=== PATIENT | male | born 1955 | race Asian ===

== ENCOUNTER 2016-10-20 14:11 | Observation (INO) | payer SELFPAY ==
--- NOTE | 2016-10-20 15:25 | PDOC ---
History of Present Illness <Floyd Houser - Last Filed: 10/20/16 17:19> - General History Source: Patient Exam Limitations: No Limitations - History of Present Illness Initial Comments: 10/20/16 15:32 The patient is a 61 year old male with a significant PMH of diabetes who presents to the emergency department with blurred vision beginning yesterday at about 2:00PM. 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 He describes the blurriness as intermittent and without pain. The patients called Dr. Odonnell, who is covering for Dr. Shaffer, who referred her to the ED after noting a high blood pressure. The patient denies chest pain, shortness of breath, headache and dizziness. Denies fever, chills, nausea, vomit, diarrhea and constipation. Denies dysuria, frequency, urgency and hematuria. Allergies: Penicillin Social history: No reported cigarette, drug, or alcohol use PCP: Dr. Shaffer <Bobby Smith - Last Filed: 10/20/16 17:29> - General Chief Complaint: CVA/TIA Stated Complaint: SENT BY PCP FOR HTN Time Seen by Provider: 10/20/16 14:58 NIH Stroke Scale - Last Known Well Date/Time & Onset Date Last Known Well: 10/19/16 Time Last Known Well: 14:00 - Initial Evaluation Level of consciousness: Alert Ask patient the month and their age: Answers both correctly Ask patient to open & close eyes; make fist and let go: Obeys both correctly Best gaze (horizontal eye movement): Normal Visual field testing: No visual field loss Facial paresis (Show teeth/raise eyebrows/close eyes tight): Normal symmetrical movement Motor Function: Left Arm: Normal Motor Function: Right Arm: Normal (extends arm 90 (or 45) degrees for 10 seconds without drift Motor Function: Left Leg: Normal (extends leg 30 degrees for 5 seconds without drift) Motor Function: Right Leg: Normal (extends leg 30 degrees for 5 seconds without drift) Limb Ataxia: No ataxia Sensory(Use pinprick test arms,legs,trunk,face/side to side): Normal Best language (Describe picture, name items, read sentences): No Aphasia Dysarthria (read several words): Normal articulation Extinction and Inattention: No abnormality - Total Score NIH Stroke Scale Score: 0 <Floyd Houser - Last Filed: 10/20/16 17:19> Past History - Past Medical History Diabetes: Yes - Psycho/Social/Smoking Cessation Hx Anxiety: No Suicidal Ideation: No Smoking Status: No Smoking History: Never smoked Number of Cigarettes Smoked Daily: 0 Information on smoking cessation initiated: No Hx Alcohol Use: No <Floyd Houser - Last Filed: 10/20/16 17:19> <Bobby Smith - Last Filed: 10/20/16 17:29> - Past Medical History Allergies/Adverse Reactions: Allergies Allergy/AdvReac Type Severity Reaction Status Date / Time Penicillins Allergy Verified 10/20/16 14:20 Home Medications: Ambulatory Orders Unobtainable [Unobtainable] 10/20/16 Review of Systems - Review of Systems Comments:: 10/20/16 15:33 GENERAL/CONSTITUTIONAL: No fever or chills. No weakness. HEAD, EYES, EARS, NOSE AND THROAT: (+) Blurred vision in right eye. No ear pain or discharge. No sore throat. CARDIOVASCULAR: No chest pain or shortness of breath. RESPIRATORY: No cough, wheezing, or hemoptysis. GASTROINTESTINAL: No nausea, vomiting, diarrhea or constipation. GENITOURINARY: No dysuria, frequency, or change in urination. MUSCULOSKELETAL: No joint or muscle swelling or pain. No neck or back pain. SKIN: No rash NEUROLOGIC: No headache, vertigo, loss of consciousness, or change in strength/ sensation. ENDOCRINE: No increased thirst. No abnormal weight change. HEMATOLOGIC/LYMPHATIC: No anemia, easy bleeding, or history of blood clots. ALLERGIC/IMMUNOLOGIC: No hives or skin allergy. <Bobby Smith - Last Filed: 10/20/16 17:29> *Physical Exam - Vital Signs Last Vital Signs Temp Pulse Resp BP Pulse Ox 98.2 F 75 18 158/95 100 10/20/16 14:13 10/20/16 14:13 10/20/16 14:13 10/20/16 14:13 10/20/16 14:13 <Floyd Houser - Last Filed: 10/20/16 17:19> - Vital Signs Last Vital Signs Temp Pulse Resp BP Pulse Ox 98.2 F 75 18 158/95 100 10/20/16 14:13 10/20/16 14:13 10/20/16 14:13 10/20/16 14:13 10/20/16 14:13 - Physical Exam Comments: 10/20/16 15:33 GENERAL: Awake, alert, and fully oriented, in no acute distress HEAD: No signs of trauma EYES: PERRLA, EOMI, sclera anicteric, conjunctiva clear ENT: Auricles normal inspection, hearing grossly normal, nares patent, oropharynx clear without exudates. Moist mucosa NECK: Normal ROM, supple, no lymphadenopathy, JVD, or masses LUNGS: Breath sounds equal, clear to auscultation bilaterally. No wheezes, and no crackles HEART: Regular rate and rhythm, normal S1 and S2, no murmurs, rubs or gallops ABDOMEN: Soft, nontender, normoactive bowel sounds. No guarding, no rebound. No masses EXTREMITIES: Normal range of motion, no edema. No clubbing or cyanosis. No cords, erythema, or tenderness NEUROLOGICAL: Cranial nerves II through XII grossly intact. Normal speech, normal gait. Symmetrical, no motor or sensory loss. No dysmetria. No disconjugate gaze. No amblyopia. No cerebellar signs. No aphasia. No dysarthria. Grossly without any abnormalities. SKIN: Warm, Dry, normal turgor, no rashes or lesions noted. <Bobby Smith - Last Filed: 10/20/16 17:29> Heart Score/ECG Review #1 10/20/16 16:13 Vent. rate 72 bpm WA interval 160 ms QRS duration 80 ms QT/QTc 372/407 ms P-R-T axes 47 53 35 Normal sinus rhythm Normal ECG. <Bobby Smith - Last Filed: 10/20/16 17:29> ED Treatment Course - LABORATORY CBC & Chemistry Diagram: 10/20/16 14:45 10/20/16 14:45 - RADIOLOGY Radiology Studies Ordered: Category Date Time Status HEAD CT (STROKE) [CT] Stat CT Scan 10/20/16 15:21 Ordered CHEST X-RAY PORTABLE* [RAD] Stat Radiology 10/20/16 15:23 Ordered <Floyd Houser - Last Filed: 10/20/16 17:19> - LABORATORY CBC & Chemistry Diagram: 10/20/16 14:45 10/20/16 14:45 <Bobby Smith - Last Filed: 10/20/16 17:29> Medical Decision Making - Medical Decision Making 10/20/16 17:17 Spoke with MICHAEL Boswell, Observation Telemetry MRI tomorrow Consult Neuro, Tamera <Floyd Houser - Last Filed: 10/20/16 17:19> - Medical Decision Making 10/20/16 17:[address] Philip, Neurology regarding this case. <Bobby Smith - Last Filed: 10/20/16 17:29> *DC/Admit/Observation/Transfer - Discharge Dispostion Admit: Yes - Attestations Physician Attestion: 10/20/16 15:24 I, Dr. Floyd Houser, attest that this document has been prepared under my direction and personally reviewed by me in its entirety. I further attest, that it accurately reflects all work, treatment, procedures and medical decision -making performed by me. <Floyd Houser - Last Filed: 10/20/16 17:19> - Attestations Scribe Attestion: 10/20/16 15:33 Documentation prepared by Bobby Smith, acting as medical oncologist for Floyd Houser MD. <Bobby Smith - Last Filed: 10/20/16 17:29> Diagnosis at time of Disposition: Acute visual loss Qualifiers: Laterality: right Qualified Code(s): H53.131 - Sudden visual loss, right eye TIA (transient ischemic attack) Qualifiers: Transient cerebral ischemia type: unspecified Qualified Code(s): G45.9 - Transient cerebral ischemic attack, unspecified Hypertension Qualifiers: Hypertension type: essential hypertension Qualified Code(s): I10 - Essential ( primary) hypertension - Discharge Dispostion Condition at time of disposition: Improved - Referrals Referrals: Mallory Shaffer MD [Primary Care Provider] -
[2016-10-20 16:09] LABS: BASOPHIL 0.3 % (0-2.0); EOSINOPHIL 0.8 % (0-4.5); MCHC 33.6 g/dl (32.0-35.9); MEAN CELL VOLUME 86.2 fl (80-96); MEAN PLT VOLUME 8.2 fl (7.5-11.1); NEUTROPHILS 59.6 % (42.8-82.8); PLATELET COUNT 284 K/MM3 (134-434); RDW 12.7 % (11.9-15.9); WHITE BLOOD COUNT 9.5 K/mm3 (4.0-10.0)
[2016-10-20 16:09] LABS: URINE APPEARANCE CLEAR; URINE BILIRUBIN NEGATIVE (NEGATIVE); URINE BLOOD NEGATIVE (NEGATIVE); URINE COLOR LTYELLOW; URINE GLUCOSE (UA) 3+ (NEGATIVE); URINE KETONE 1+ (NEGATIVE); URINE LEUK ESTERASE NEGATIVE (NEGATIVE); URINE NITRITE NEGATIVE (NEGATIVE); URINE PROTEIN NEGATIVE (NEGATIVE); URINE UROBILINOGEN NEGATIVE mg/dL (0.2-1.0)
[2016-10-20 16:23] LABS: INR 1.06 (0.82-1.09); PROTHROMBIN TIME (PATIENT) 11.7 SEC (9.98-11.88)
[2016-10-20] MEDS: SODIUM CHLORIDE 1,000 ML IV SCH (16:25)
[2016-10-20 16:33] LABS: ALBUMIN 4.1 g/dl (3.4-5.0); ANION GAP 9 (8-16); CALCIUM 9.2 mg/dL (8.5-10.1); CHOLESTEROL 210 mg/dL (50-200); CO2 26 mmol/L (21-32); CREATININE 0.8 mg/dL (0.7-1.3); GLUCOSE,RANDOM 102 mg/dL (74-106); LDL CHOLESTEROL (ONLY SJRH) 142 mg/dL (5-100); SGOT/AST 15 U/L (15-37); SGPT/ALT 23 U/L (12-78); TOT PROT 7.7 g/dl (6.4-8.2)
[2016-10-20 16:34] LABS: ALK PHOS 55 U/L (45-117); CPK 61 IU/L (39-308); TROPONIN I < 0.02 ng/ml (0.00-0.05)
--- NOTE | 2016-10-20 18:49 | EKG ---
Test Reason : Blood Pressure : / mmHG Vent. Rate : 072 BPM Atrial Rate : 072 BPM P-R Int : 160 ms QRS Dur : 080 ms QT Int : 372 ms P-R-T Axes : 047 053 035 degrees QTc Int : 407 ms NORMAL SINUS RHYTHM NORMAL ECG NO PREVIOUS ECGS AVAILABLE Confirmed by JANNIE MOE MD ([id number]) on 10/20/2016 6:49:04 PM Referred By: Confirmed By:JANNIE MOE MD
[2016-10-20] MEDS ORDERED: METOPROLOL TARTRATE 25 MG TABLET (FP) ONE (18:52)
[2016-10-20] MEDS ORDERED: METOPROLOL TARTRATE 25 MG TABLET (FP) PO ONE (18:56)
--- NOTE | 2016-10-20 19:59 | HP ---
Admitting History and Physical - Primary Care Physician PCP: Mallory Shaffer - Admission Chief Complaint: Blurring of vision Rt eye History of Present Illness: 61 yrs old man h/o T2DM, non smoker, no H/O HTN, Dyslipidemia, works as a professional driver , is referred by PMD office to Ed for evluation of HTN and and recurrent episodes of blurry vision in Rt eye, most during morning hours, also had an episode of Head ache , patient says after his shift developed haed ache followed by blurring of vision with double vision , no ocular pain, eye trauma , , facial numbness, any othrt motor sensory symptoms or slurring of speeech, in ED CT head, CXR are normal, still c/o mild blurting. 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's, CVA Cardiovascular: No: AFIB, Aortic Insufficiency, Aortic Stenosis Pulmonary: No: Asthma, Bronchitis, Cancer, COPD Gastrointestinal: No: Ascites, Cancer, Constipation Hepatobiliary: No: Cirrhosis, Cholelithiasis Renal/: No: Renal Failure, Renal Inusuff Heme/Onc: No: Anemia, B12 Deficiency Infectious Disease: No: AIDS, C-Diff, Herpes Zoster Psych: No: Addictions, Anxiety Musculoskeletal: No: Bursitis - Smoking History Smoking history: Never smoked Aproximately how many cigarettes per day: 0 - Alcohol/Substance Use Hx Alcohol Use: No - Social History ADL: Independent Home Medications - Allergies Allergies/Adverse Reactions: Allergies Allergy/AdvReac Type Severity Reaction Status Date / Time Penicillins Allergy Verified 10/20/16 14:20 - Home Medications Home Medications: Ambulatory Orders Unobtainable [Unobtainable] 10/20/16 Family Disease History - Family Disease History Family Disease History: Heart Disease: Grandparent, [place]: Brother Review of Systems - Review of Systems Constitutional: reports: No Symptoms, Chills Eyes: reports: Blurred Vision HENT: reports: No Symptoms, Difficult Swallowing Neck: reports: No Symptoms Cardiovascular: reports: No Symptoms. denies: Chest Pain, Edema, Palpitations Respiratory: reports: No Symptoms. denies: Cough, Exercise Intolerance, Hemoptysis Gastrointestinal: reports: No Symptoms Genitourinary: reports: No Symptoms Endocrine: denies: Flushing, Increased Hunger, Intolerance to Cold Psychiatric: reports: No Symptoms Physical Examination Vital Signs: Vital Signs Temperature 98.5 F 10/20/16 18:50 Pulse Rate 77 10/20/16 18:50 Respiratory Rate 20 10/20/16 18:50 Blood Pressure 173/92 10/20/16 18:50 O2 Sat by Pulse Oximetry (%) 98 10/20/16 18:50 Middle aged man comfortable HEENT: Mm moist, no anemia, PERRLA NECK; No JVd No Bryuit, CTA B/L CHEST: CTA B/L CVS: S1S2 R no m/g/r ABD: No distention, non tender Bs + EXT: No edema feet, no calf tenderness, Pulses + MONOTYPE MECHANIC: AOx3, normal speech, normal cranial N except blurring in Rt YE Imaging - Results Chest X-ray: Report Reviewed (Normal) Cat Scan: Report Reviewed (Head : Normal no acute changes) Ultrasound: Report Reviewed (left external carotid stenosis) Problem List - Problems (1) TIA (transient ischemic attack) Assessment/Plan: H/O DNM Left Carotid 50-70 % narrowing , admit to Med surg tele,neuro check, neurology consult, Hold BP meds for permissive HTN, ASa 325 mg once, add Lipitor 80 mg once, F/U Hba!C, Lipid, TSH, Vit B 12 , ECHO, telemonitoring. Code(s): G45.9 - TRANSIENT CEREBRAL ISCHEMIC ATTACK, UNSPECIFIED Qualifiers: Transient cerebral ischemia type: unspecified Qualified Code(s): G45.9 - Transient cerebral ischemic attack, unspecified (2) Hypertension Assessment/Plan: hold meds for permissive HTN Code(s): I10 - ESSENTIAL (PRIMARY) HYPERTENSION Qualifiers: Hypertension type: essential hypertension Qualified Code(s): I10 - Essential (primary) hypertension (3) T2DM (type 2 diabetes mellitus) Assessment/Plan: FS are in acccepatable range hold PO cont accucheck. Code(s): E11.9 - TYPE 2 DIABETES MELLITUS WITHOUT COMPLICATIONS (4) Hypercholesteremia Assessment/Plan: Lipitor 80 mg once and daily. Code(s): E78.00 - PURE HYPERCHOLESTEROLEMIA, UNSPECIFIED
[2016-10-20] MEDS ORDERED: PT OWN MED DRAWER 7, Y5N ONE (21:56)
[2016-10-20] MEDS ORDERED: ASPIRIN 81 MG CHEWABLE TABLETS PO ONE (23:08)
[2016-10-20] MEDS ORDERED: ATORVASTATIN CA 80 MG TABLET (FP) PO ONE (23:09)
[2016-10-20 23:47] VITALS: BMI 23.8
[2016-10-21] MEDS: INSULIN SLIDING SCALE (NOVOLOG) 1 VIAL SQ SCH ×3 (06:33→16:38)
[2016-10-21 07:06] LABS: BASOPHIL 0.7 % (0-2.0); EOSINOPHIL 1.1 % (0-4.5); MCHC 33.6 g/dl (32.0-35.9); MEAN CELL VOLUME 86.5 fl (80-96); MEAN PLT VOLUME 8.2 fl (7.5-11.1); PLATELET COUNT 271 K/MM3 (134-434); RDW 12.7 % (11.9-15.9); WHITE BLOOD COUNT 9.3 K/mm3 (4.0-10.0)
[2016-10-21 08:26] LABS: ALK PHOS 54 U/L (45-117); ANION GAP 12 (8-16); BILIRUBIN,TOTAL 1.1 mg/dL (0.2-1.0); CALCIUM 9.4 mg/dL (8.5-10.1); CO2 25 mmol/L (21-32); CREATININE 0.9 mg/dL (0.7-1.3); GLUCOSE,RANDOM 111 mg/dL (74-106); SGPT/ALT 25 U/L (12-78); THYROID STIMULATING HORMONE 1.48 uIU/ml (0.358-3.74); TOT PROT 7.8 g/dl (6.4-8.2)
[2016-10-21 08:28] LABS: SGOT/AST 23 U/L (15-37)
[2016-10-21] MEDS ORDERED: ATORVASTATIN CA 40 MG TABLET (FP) PO SCH (09:25)
--- NOTE | 2016-10-21 09:27 | PN ---
Progress Note, Physician Chief Complaint: Feels improved 61yrs old man admitted with Rt eye blurring of vision - Current Medication List Current Medications: Active Medications Aspirin (Ecotrin -) 81 mg PO DAILY [facility] Sodium Chloride (Normal Saline -) 1,000 mls @ 42 mls/hr IV ASDIR [facility] Last Admin: 10/20/16 16:25 Dose: 42 mls/hr Insulin Aspart (Novolog Vial Sliding Scale -) 1 vial SQ TIDAC [facility] PRN Reason: Protocol Last Admin: 10/21/16 06:33 Dose: Not Given - Objective Vital Signs: Vital Signs Temperature 98.6 F 10/21/16 05:13 Pulse Rate 70 10/21/16 05:13 Respiratory Rate 16 10/21/16 05:13 Blood Pressure 142/93 10/21/16 05:13 O2 Sat by Pulse Oximetry (%) 97 10/21/16 05:00 Middle aged man comfortable HEENT: Mm moist, no anemia, PERRLA NECK; No JVd No Bryuit, CTA B/L CHEST: CTA B/L CVS: S1S2 R no m/g/r ABD: No distention, non tender Bs + EXT: No edema feet, no calf tenderness, Pulses + LADLER: AOx3, normal speech, normal cranial N except blurring in Rt YE Labs: CBC, BMP 10/21/16 06:20 10/21/16 06:20 INR, PTT INR 1.06 (0.82-1.09) 10/20/16 14:45 Problem List - Problems (1) TIA (transient ischemic attack) Assessment/Plan: H/O DNM Left Carotid 50-70 % narrowing , admit to Med surg tele,neuro check, neurology consult, Hold BP meds for permissive HTN, ASa 325 mg once, add Lipitor 80 mg once, F/U Hba!C, Lipid, TSH, Vit B 12 , ECHO, telemonitoring. Code(s): G45.9 - TRANSIENT CEREBRAL ISCHEMIC ATTACK, UNSPECIFIED Qualifiers: Transient cerebral ischemia type: unspecified Qualified Code(s): G45.9 - Transient cerebral ischemic attack, unspecified (2) Hypertension Assessment/Plan: hold meds for permissive HTN Code(s): I10 - ESSENTIAL (PRIMARY) HYPERTENSION Qualifiers: Hypertension type: essential hypertension Qualified Code(s): I10 - Essential (primary) hypertension (3) T2DM (type 2 diabetes mellitus) Assessment/Plan: FS are in acccepatable range hold PO cont accucheck. Code(s): E11.9 - TYPE 2 DIABETES MELLITUS WITHOUT COMPLICATIONS (4) Hypercholesteremia Code(s): E78.00 - PURE HYPERCHOLESTEROLEMIA, UNSPECIFIED
--- NOTE | 2016-10-21 10:12 | CONSULT ---
Consult - text type - Consultation Consultation Note: Neurology History of Present Illness The patient is a 61 year old male with a significant PMH of diabetes who presents to the emergency department with blurred vision beginning yesterday at about 2:00PM. 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 He describes the blurriness as intermittent and without pain. The patients called Dr. Odonnell, who is covering for Dr. Shaffer, who referred her to the ED after noting a high blood pressure. In the ER, he completed CT head and I spoke with ER physician. Not considered TPA candidate as he was out of the window and NIHSS was 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 Further evaluation with MRI was suggested. Past History - Past Medical History Diabetes: Yes - Psycho/Social/Smoking Cessation Hx Anxiety: No Suicidal Ideation: No Smoking Status: No Smoking History: Never smoked Number of Cigarettes Smoked Daily: 0 Information on smoking cessation initiated: No Hx Alcohol Use: No - Past Medical History Allergies/Adverse Reactions: Allergies Allergy/AdvReac Type Severity Reaction Status Date / Time Penicillins Allergy Verified 10/20/16 14:20 Active Medications Aspirin (Ecotrin -) 81 mg PO DAILY [facility] Atorvastatin Calcium (Lipitor -) 40 mg PO HS [facility] Sodium Chloride (Normal Saline -) 1,000 mls @ 42 mls/hr IV ASDIR [facility] Last Admin: 10/20/16 16:25 Dose: 42 mls/hr Insulin Aspart (Novolog Vial Sliding Scale -) 1 vial SQ TIDAC [facility] PRN Reason: Protocol Last Admin: 10/21/16 06:33 Dose: Not Given Lisinopril (Prinivil) 10 mg PO DAILY [facility] Review of Systems GENERAL/CONSTITUTIONAL: No fever or chills. No weakness. HEAD, EYES, EARS, NOSE AND THROAT: (+) Blurred vision in right eye. No ear pain or discharge. No sore throat. CARDIOVASCULAR: No chest pain or shortness of breath. RESPIRATORY: No cough, wheezing, or hemoptysis. GASTROINTESTINAL: No nausea, vomiting, diarrhea or constipation. GENITOURINARY: No dysuria, frequency, or change in urination. MUSCULOSKELETAL: No joint or muscle swelling or pain. No neck or back pain. SKIN: No rash NEUROLOGIC: No headache, vertigo, loss of consciousness, or change in strength/ sensation. ENDOCRINE: No increased thirst. No abnormal weight change. HEMATOLOGIC/LYMPHATIC: No anemia, easy bleeding, or history of blood clots. ALLERGIC/IMMUNOLOGIC: No hives or skin allergy. *Physical Exam Vital Signs Temperature 98.6 F 10/21/16 05:13 Pulse Rate 70 10/21/16 05:13 Respiratory Rate 16 10/21/16 05:13 Blood Pressure 142/93 10/21/16 05:13 O2 Sat by Pulse Oximetry (%) 97 10/21/16 05:00 GENERAL: Awake, alert, and fully oriented, in no acute distress HEAD: No signs of trauma EYES: PERRLA, EOMI, sclera anicteric, conjunctiva clear ENT: Auricles normal inspection, hearing grossly normal, nares patent, oropharynx clear without exudates. Moist mucosa NECK: Normal ROM, supple, no lymphadenopathy, JVD, or masses LUNGS: Breath sounds equal, clear to auscultation bilaterally. No wheezes, and no crackles HEART: Regular rate and rhythm, normal S1 and S2, no murmurs, rubs or gallops ABDOMEN: Soft, nontender, normoactive bowel sounds. No guarding, no rebound. No masses EXTREMITIES: Normal range of motion, no edema. No clubbing or cyanosis. No cords, erythema, or tenderness NEUROLOGICAL: Cranial nerves II through XII grossly intact. Normal speech, normal gait. Symmetrical, no motor or sensory loss. No dysmetria. No disconjugate gaze. No amblyopia. No cerebellar signs. No aphasia. No dysarthria. Grossly without any abnormalities. SKIN: Warm, Dry, normal turgor, no rashes or lesions noted. CBCD WBC 9.3 K/mm3 (4.0-10.0) 10/21/16 06:20 RBC 6.08 M/mm3 (4.00-5.60) H 10/21/16 06:20 Hgb 17.6 GM/dL (11.7-16.9) H 10/21/16 06:20 Hct 52.5 % (35.4-49) H 10/21/16 06:20 MCV 86.5 fl (80-96) 10/21/16 06:20 MCHC 33.6 g/dl (32.0-35.9) 10/21/16 06:20 RDW 12.7 % (11.9-15.9) 10/21/16 06:20 Plt Count 271 K/MM3 (134-434) 10/21/16 06:20 MPV 8.2 fl (7.5-11.1) 10/21/16 06:20 CMP Sodium 139 mmol/L (136-145) 10/21/16 06:20 Potassium 4.2 mmol/L (3.5-5.1) 10/21/16 06:20 Chloride 102 mmol/L (98-107) 10/21/16 06:20 Carbon Dioxide 25 mmol/L (21-32) 10/21/16 06:20 Anion Gap 12 (8-16) 10/21/16 06:20 BUN 20 mg/dL (7-18) H 10/21/16 06:20 Creatinine 0.9 mg/dL (0.7-1.3) 10/21/16 06:20 Creat Clearance w eGFR > 60 (>60) 10/21/16 06:20 Calcium 9.4 mg/dL (8.5-10.1) 10/21/16 06:20 Total Bilirubin 1.1 mg/dL (0.2-1.0) H 10/21/16 06:20 AST 23 U/L (15-37) D 10/21/16 06:20 ALT 25 U/L (12-78) 10/21/16 06:20 Alkaline Phosphatase 54 U/L (45-117) 10/21/16 06:20 Total Protein 7.8 g/dl (6.4-8.2) 10/21/16 06:20 Albumin 4.0 g/dl (3.4-5.0) 10/21/16 06:20 - RADIOLOGY CT head reviewed in detail CD reviewed in detail Medical Decision Making 61 year old male with a significant PMH of diabetes who presents to the emergency department with blurred vision beginning yesterday at about 2:00PM. 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 He describes the blurriness as intermittent and without pain. The patients called Dr. Odonnell , who is covering for Dr. Shaffer, who referred her to the ED after noting a high blood pressure. In the ER, he completed CT head and I spoke with ER physician. Not considered TPA candidate as he was out of the window and NIHSS was 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 Further evaluation with MRI was suggested which I ordered. Also ordered MRA brain and neck. Patient does not take ASA and I advised to start ASA 81mg daily. Patient also to be started on statin, Atorvastatin 40mg daily started. Follow up Lipid levels as outpatient, goal is < 70 for LDL in patient with CVA. BP control, goal <140 as outpatient. Tight glycemic control, goal HGA1C < 6.0 as outpatient. Continue Insulin and monitor glucose level.
[2016-10-21] MEDS: ASPIRIN COATED 81 MG TABLET.EC PO SCH (10:35)
[2016-10-21] MEDS: LISINOPRIL 10 MG TABLET (FP) PO SCH (10:35)
[2016-10-21] MEDS: SODIUM CHLORIDE 1,000 ML IV SCH (15:30)
[2016-10-22] MEDS: INSULIN SLIDING SCALE (NOVOLOG) 1 VIAL SQ SCH (06:24)
--- NOTE | 2016-10-22 08:44 | DS ---
Physical Examination Vital Signs: Vital Signs Temperature 98.4 F 10/22/16 06:00 Pulse Rate 72 10/22/16 06:00 Respiratory Rate 20 10/22/16 06:00 Blood Pressure 141/84 10/22/16 06:00 O2 Sat by Pulse Oximetry (%) 96 10/22/16 05:00 Labs: CBC, BMP 10/21/16 06:20 10/21/16 06:20 Discharge Summary Reason For Visit: ACUTE VISUAL LOSS TIA HYPERTENTION Current Active Problems Acute visual loss (Acute) Hypercholesteremia (Acute) Hypertension (Acute) T2DM (type 2 diabetes mellitus) (Acute) TIA (transient ischemic attack) (Acute) Condition: Improved - Instructions Referrals: Mallory Shaffer MD [Primary Care Provider] - Jose Ramon Philip MD [Staff Physician] - 2 Weeks - Home Medications Comprehensive Discharge Medication List: Ambulatory Orders Aspirin Coated [Ecotrin -] 81 mg PO DAILY #30 tab 10/22/16 Atorvastatin Ca [Lipitor] 40 mg PO HS #30 tablet 10/22/16 Lisinopril [Prinivil] 20 mg PO DAILY #30 tablet 10/22/16
[2016-10-22] MEDS: ASPIRIN COATED 81 MG TABLET.EC PO SCH (09:10)
[2016-10-22] MEDS: LISINOPRIL 10 MG TABLET (FP) PO SCH (09:10)
--- NOTE | 2016-10-22 10:18 | PN ---
Progress Note (short form) - Note Progress Note: Neurology History of Present Illness The patient is a 61 year old male with a significant PMH of diabetes who presents to the emergency department with blurred vision beginning yesterday at about 2:00PM. 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 He describes the blurriness as intermittent and without pain. The patients called Dr. Odonnell, who is covering for Dr. Shaffer, who referred her to the ED after noting a high blood pressure. In the ER, he completed CT head and I spoke with ER physician. Not considered TPA candidate as he was out of the window and NIHSS was 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 MRI brain completed and reviewed and did not how acute changes. Did demonstrate chronic R posterior inferior cerebellar infarct. Chronic R parietal infarct. Spoke to patient regarding this and believes this may have occured 5 years ago. Was not taking ASA that he was advised, drives a limo and therefore sedentary and we discussed importance of lifestyle modication and medication compliance. Also started on Statin. MRA showed R vertebral with slow flow and contrast enhanced recommended. Active Medications Aspirin (Ecotrin -) 81 mg PO DAILY [facility] Last Admin: 10/22/16 09:10 Dose: 81 mg Atorvastatin Calcium (Lipitor -) 40 mg PO HS [facility] Last Admin: 10/21/16 10:35 Dose: 40 mg Insulin Aspart (Novolog Vial Sliding Scale -) 1 vial SQ TIDAC [facility] PRN Reason: Protocol Last Admin: 10/22/16 06:24 Dose: Not Given Lisinopril (Prinivil) 10 mg PO DAILY [facility] Last Admin: 10/22/16 09:10 Dose: 10 mg *Physical Exam Vital Signs Temperature 98.4 F 10/22/16 06:00 Pulse Rate 72 10/22/16 06:00 Respiratory Rate 20 10/22/16 06:00 Blood Pressure 141/84 10/22/16 06:00 O2 Sat by Pulse Oximetry (%) 96 10/22/16 05:00 GENERAL: Awake, alert, and fully oriented, in no acute distress HEAD: No signs of trauma EYES: PERRLA, EOMI, sclera anicteric, conjunctiva clear ENT: Auricles normal inspection, hearing grossly normal, nares patent, oropharynx clear without exudates. Moist mucosa NECK: Normal ROM, supple, no lymphadenopathy, JVD, or masses LUNGS: Breath sounds equal, clear to auscultation bilaterally. No wheezes, and no crackles HEART: Regular rate and rhythm, normal S1 and S2, no murmurs, rubs or gallops ABDOMEN: Soft, nontender, normoactive bowel sounds. No guarding, no rebound. No masses EXTREMITIES: Normal range of motion, no edema. No clubbing or cyanosis. No cords, erythema, or tenderness NEUROLOGICAL: Cranial nerves II through XII grossly intact. Normal speech, normal gait. Symmetrical, no motor or sensory loss. No dysmetria. No disconjugate gaze. No amblyopia. No cerebellar signs. No aphasia. No dysarthria. Grossly without any abnormalities. SKIN: Warm, Dry, normal turgor, no rashes or lesions noted. CBCD WBC 9.3 K/mm3 (4.0-10.0) 10/21/16 06:20 RBC 6.08 M/mm3 (4.00-5.60) H 10/21/16 06:20 Hgb 17.6 GM/dL (11.7-16.9) H 10/21/16 06:20 Hct 52.5 % (35.4-49) H 10/21/16 06:20 MCV 86.5 fl (80-96) 10/21/16 06:20 MCHC 33.6 g/dl (32.0-35.9) 10/21/16 06:20 RDW 12.7 % (11.9-15.9) 10/21/16 06:20 Plt Count 271 K/MM3 (134-434) 10/21/16 06:20 MPV 8.2 fl (7.5-11.1) 10/21/16 06:20 CMP Sodium 139 mmol/L (136-145) 10/21/16 06:20 Potassium 4.2 mmol/L (3.5-5.1) 10/21/16 06:20 Chloride 102 mmol/L (98-107) 10/21/16 06:20 Carbon Dioxide 25 mmol/L (21-32) 10/21/16 06:20 Anion Gap 12 (8-16) 10/21/16 06:20 BUN 20 mg/dL (7-18) H 10/21/16 06:20 Creatinine 0.9 mg/dL (0.7-1.3) 10/21/16 06:20 Creat Clearance w eGFR > 60 (>60) 10/21/16 06:20 Calcium 9.4 mg/dL (8.5-10.1) 10/21/16 06:20 Total Bilirubin 1.1 mg/dL (0.2-1.0) H 10/21/16 06:20 AST 23 U/L (15-37) D 10/21/16 06:20 ALT 25 U/L (12-78) 10/21/16 06:20 Alkaline Phosphatase 54 U/L (45-117) 10/21/16 06:20 Total Protein 7.8 g/dl (6.4-8.2) 10/21/16 06:20 Albumin 4.0 g/dl (3.4-5.0) 10/21/16 06:20 - RADIOLOGY CT head reviewed in detail CD reviewed in detail Medical Decision Making 61 year old male with a significant PMH of diabetes who presents to the emergency department with blurred vision beginning yesterday at about 2:00PM. 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 He describes the blurriness as intermittent and without pain. The patients called Dr. Odonnell , who is covering for Dr. Shaffer, who referred her to the ED after noting a high blood pressure. In the ER, he completed CT head and I spoke with ER physician. Not considered TPA candidate as he was out of the window and NIHSS was 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 MRI brain completed and reviewed and did not how acute changes. Did demonstrate chronic R posterior inferior cerebellar infarct. Chronic R parietal infarct. Spoke to patient regarding this and believes this may have occured 5 years ago. Was not taking ASA that he was advised, drives a limo and therefore sedentary and we discussed importance of lifestyle modication and medication compliance. Also started on Statin. MRA showed R vertebral with slow flow and contrast enhanced recommended. Atorvastatin 40mg daily started. Follow up Lipid levels as outpatient, goal is < 70 for LDL in patient with CVA. BP control, goal <140 as outpatient. Tight glycemic control, goal HGA1C < 6.0 as outpatient. Continue Insulin and monitor glucose level.
[2016-10-22 10:19] VITALS: BP 138/81; PULSE 77; TEMP 97.9
== END 2016-10-22 10:50 | disposition home or self-care (01) ==
LOC: JER 14:11 → JERBED 17:20 → J4S 21:25
PROVIDERS: ADMIT Internal Medicine; ATTEND Internal Medicine
DX: G45.9 Transient cerebral ischemic attack, unspecified (principal); H53.131 Sudden visual loss, right eye; I10 Essential (primary) hypertension; E11.9 Type 2 diabetes mellitus without complications; E78.5 Hyperlipidemia, unspecified; Z88.0 Allergy status to penicillin; Z79.82 Long term (current) use of aspirin
CPT/HCPCS: 36415; 70450-TC; 70544-TC; 70549-TC; 70553-TC; 71010-TC; 80053; 81003; 82465; 83036; 83718; 83721; 83735; 84443; 84478; 84484; 85025; 85610; 86850; 86900; 86901; 93005; 93010; 93306-TC; 93880-TC; 99285-25; G0378